=== PATIENT | male | born 1945 | race Caucasian/White ===

== ENCOUNTER 2018-07-05 11:14 | Emergency (ER) | payer MEDICARE, OTHER ==
[~2018-07-05] VITALS: Ht 177.8 cm; Wt 97.8 kg
[~2018-07-05 11:14] MED LIST: CEPHALEXIN 500500 M2 PO; COUMADIN 5 MG TA5 M1; COUMADIN 5 MG TA5 M1 PO; COUMADIN7.5 MG PO; FOLIC ACID; ZOCOR
[2018-07-05] MEDS ORDERED: MULTIVITAMINS1 EAC7 PO (11:27)
[2018-07-05 11:40] LABS: URINE BILIRUBIN NEGATIVE (Negative); URINE BLOOD 3+ (Negative); URINE CLARITY CLEAR; URINE COLOR YELLOW; URINE GLUCOSE-RANDOM NEGATIVE (Negative); URINE KETONES NEGATIVE (Negative); URINE LEUKOCYTES-REFLEX NEGATIVE (Negative); URINE NITRITE-REFLEX NEGATIVE (Negative); URINE PROTEIN NEGATIVE (Negative); URINE UROBILINOGEN 0.2 E.U./dl (0.2-1.0)
[2018-07-05 11:50] LABS: ABSOLUTE MONOCYTES 0.5 thou/uL (0.0-1.2); ABSOLUTE NEUTROPHILS 4.3 thou/uL (1.6-8.1); BASOPHILS 0.7 %; EOSINOPHILS 0.5 %; HEMOGLOBIN 14.1 gm/dL (14.0-18.0); LYMPHOCYTES 16.7 %; MCH 34.7 pg (26.0-34.0); MCHC 34.4 g/dL (28.0-37.0); MCV 100.9 fL (80.0-100.0); MPV 7.3 fl. (7.2-11.1); NUCLEATED RBCS 0 /100WBC; PLATELET COUNT* 179 thou/uL (150-400); POLYS 74.1 %; RBC 4.07 mil/uL (4.50-6.00); RDW-CV 14.4 % (10.5-14.5); WBC 5.8 thou/uL (4.0-11.0)
[2018-07-05 12:00] LABS: CALCIUM 8.8 mg/dL (8.5-10.1); CREATININE 1.5 mg/dL (0.6-1.3); POTASSIUM 4.1 mmol/L (3.5-5.1)
[2018-07-05 12:04] LABS: ALBUMIN 3.6 g/dL (3.4-5.0); TOTAL BILIRUBIN 0.7 mg/dL (<0.1-1.0); TOTAL PROTEIN 6.3 g/dL (6.4-8.2)
[2018-07-05 12:04] LABS: BACTERIA-REFLEX 1-9 Few /HPF (None Seen); CASTS None Seen /LPF (None Seen); CRYSTALS None Seen /LPF (None Seen); MUCUS 0-3 Light strn/LPF (None Seen); SQUAMOUS 0-3 Few /LPF (0-3); URINE WBC-REFLEX 0-5 Rare /HPF (0-5)
[2018-07-05] MEDS ORDERED: ZOFRAN4 MG PO (13:14)
[2018-07-05] MEDS ORDERED: NORCO 5-325 TA1 EACH PO (13:14)
[2018-07-05 13:27] LABS: INR 1.6; PROTIME 16.6 Seconds (9.20-11.50)
[2018-07-05 14:14] VITALS: BP 112/70
--- NOTE | 2018-07-05 17:13 | EKG ---
[place] [address] ELECTROCARDIOGRAM REPORT Name: LELA RENAE JR Room: [facility]#: [id number] Admission: 07/05/18 Attend Phys: Discharge: 07/05/18 Date of : 45 Report #: [id number] THIS REPORT FOR: //name// [facility] ED Test Date: 2018-07-05 Test Time: 11:34:35 Pat Name: LELA RENAE Department: Room: Gender: M Parking Technician: Mile GOODMAN : 1945 Requested By: Caryn Goodman Order Number: [id number] MD: Van Yancey Measurements Intervals [place] Rate: 75 P: 45 MI: 184 QRS: -17 QRSD: 100 T: -7 QT: 406 QTc: 454 Interpretive Statements Sinus rhythm Probable left atrial enlargement Low voltage, precordial leads Left ventricular hypertrophy Borderline T abnormalities, inferior leads Compared to ECG 05/23/2012 08:27:34 Left ventricular hypertrophy now present Electronically Signed On 07-05-2018 17:13:38 CDT by Van Yancey [email or web address] <ELECTRONICALLY SIGNED> By: Van Yancey MD, [facility] 07/05/18 1713 1134 [id number] Van Yancey MD, [facility] /EPI
== END 2018-07-05 14:15 | disposition home or self-care (01) ==
LOC: M.ERS 11:14
PROVIDERS: Nurse Practitioner Family
DX: N20.1 Calculus of ureter (principal); R11.2 Nausea with vomiting, unspecified; E78.00 Pure hypercholesterolemia, unspecified; Z86.718 Personal history of other venous thrombosis and embolism

== ENCOUNTER 2019-02-20 10:17 | Emergency (ER) | payer MEDICARE, OTHER ==
[~2019-02-20] VITALS: Ht 177.8 cm; Wt 93.9 kg
[~2019-02-20 10:17] MED LIST changes: +MULTIVITAMINS1 EAC7 PO; +NORCO 5-325 TA1 EACH PO; +ZOFRAN4 MG PO
[2019-02-20] MEDS ORDERED: NORCO 5-325 TA1 EACH PO (11:48)
[2019-02-20 12:00] VITALS: BP 120/72
== END 2019-02-20 12:00 | disposition home or self-care (01) ==
LOC: M.ERS 10:17
DX: M25.462 Effusion, left knee (principal); E78.00 Pure hypercholesterolemia, unspecified; Z86.718 Personal history of other venous thrombosis and embolism